=== PATIENT | female | born 1955 | race Caucasian/White ===

== ENCOUNTER 2017-09-16 11:50 | Observation (INO) | payer SELFPAY ==
--- NOTE | 2017-09-16 13:03 | RAD ---
RADIOGRAPH CHEST 1 VIEW: HISTORY: 62-year-old female with palpitations and tachycardia. FINDINGS: There are no air space densities, pulmonary edema, pneumothorax, or cardiomegaly. The lateral costop hrenic angles are sharp. IMPRESSION: No acute cardiopulmonary findings. jn [] POS: CAT
[2017-09-16 13:08] LABS: #Basophils 0.1 thou/uL (0.0-0.2); #Eosinphils 0.2 thou/uL (0.0-0.7); #Lymphocytes 2.6 thou/uL (1.20-3.40); #Monocytes 0.6 thou/uL (0.11-0.59); #Neutrophils 7.3 thou/uL (1.40-6.50); %Basophils 0.6 % (0.0-1.0); %Eosinophils 1.7 % (0.0-10.0); %Monocytes 5.4 % (0.0-10.0); %Neutrophils 68.3 % (42.0-75.0); Hemoglobin 18.3 g/dL (12.0-16.0); Mean Corpuscular HGB CONC 34.1 g/dL (32.0-36.0); Mean Corpuscular Hemoglobin 36.9 pg (27.0-31.0); Mean Platelet Volume 6.9 fL (7.4-10.4); Platelet Count 251 thou/uL (130-400); RBC Distribution Width 14.1 % (11.5-14.5); Red Blood Cell (RBC) Count 4.95 mill/uL (4.20-5.40); White Blood Cell (WBC) Count 10.7 thou/uL (4.8-10.8)
[2017-09-16 13:11] LABS: ALT (SGPT) 13 U/L (8-55); AST (SGOT) 23 U/L (5-34); Albumin 3.9 g/dL (3.5-5.0); Alkaline Phosphatase 115 U/L (40-150); Anion Gap 18 mmol/L (10-20); BUN (Urea Nitrogen) 8 mg/dL (9.8-20.1); Bilirubin, Total 1.5 mg/dL (0.2-1.2); CK (CPK) 42 U/L (29-168); Calc. Creatinine Clearance 0 mL/min (70-130); Calcium 9.4 mg/dL (7.8-10.44); Carbon Dioxide 20 mmol/L (22-29); Chloride 99 mmol/L (98-107); Estimated GFR-MDRD 72; Globulin 3.2 g/dL (2.4-3.5); Glucose 108 mg/dL (70-105); Potassium 3.7 mmol/L (3.5-5.1); Protein, Total 7.1 g/dL (6.0-8.3); Sodium 133 mmol/L (136-145)
[2017-09-16 13:15] LABS: CKMB 1.1 ng/mL (0-6.6); Troponin I Less than 0.010 ng/mL (< 0.028)
[2017-09-16 13:26] LABS: MDiff Complete? YES; Macrocytosis SLIGHT = 6-15 cells (100X) (0-5/hpf); PLT Morphology Comment Appears Adequate; Polychromasia SLIGHT = 2-3 cells (100X) (0-2/hpf)
[2017-09-16 16:50] LABS: Troponin I 0.016 ng/mL (< 0.028)
[2017-09-16] MEDS ORDERED: Ondansetron ODT 4 MG TAB PO PRN (16:58)
[2017-09-16 18:03] VITALS: BMI 29.9
[2017-09-16 19:17] LABS: Troponin I 0.017 ng/mL (< 0.028)
[2017-09-16 19:38] LABS: Thyroid Stimulating Hormone 5.2036 uIU/mL (0.35-4.94)
[2017-09-16] MEDS ORDERED: Magnesium 2 GM/NS 0.9% 100 ML 2 GM in Premix Bag 1 BAG IVPB SCH (22:00)
[2017-09-17 08:13] VITALS: BP 113/56; TEMP 97.5
[2017-09-17] MEDS ORDERED: Lorazepam 0.5 MG TAB PO SCH (09:00)
--- NOTE | 2017-09-17 14:26 | EKG ---
Test Reason : TACHYCARDIA Blood Pressure : / mmHG Vent. Rate : 099 BPM Atrial Rate : 099 BPM P-R Int : 142 ms QRS Dur : 070 ms QT Int : 334 ms P-R-T Axes : 040 036 065 degrees QTc Int : 428 ms Sinus rhythm with occasional Premature ventricular complexes Otherwise normal ECG Confirmed by LONDON ESCOBAR, ANTONINA ([id number]), advertising editor DALTON ESTRELLA ([id number]) on 09/17/2017 2:25:45 PM Referred By: LONDON Confirmed By:ANTONINA CALLAHAN MD
--- NOTE | 2017-09-17 16:09 | HP ---
CHIEF COMPLAINT: Feeling funny. HISTORY OF PRESENT ILLNESS: This patient is a 62-year-old, who has a history of some anxiety disorder, hypertension and smoking, who woke this morning and skipped her usual breakfast and missed her morning lorazepam dose and began driving to visit a friend from [place] to [place]. The patient started feeling "funny." She just did not feel quite right. She subsequently felt like she was going to pass out, so she pulled over the car and bought a banana and ate that. Subsequently, she felt worse and pulled over her car and called 911. Patient states that she was short of breath and then she was breathing heavily. She states that it felt like it was a panic attack. It felt like it was similar to a panic attack she had had a couple of years prior. No chest pain or palpitations. She did report some tingling in her right arm, but that had been intermittent as before. Patient reports that after she called the ambulance and en route that she felt like her neck was aching. The patient's symptoms completely resolved. Of note, when the patient was en route in ambulance that she was having some frequent PVC's and that symptoms appeared to be contemporaneous. REVIEW OF SYSTEMS: System review was negative except for those things mentioned. PAST MEDICAL HISTORY: Notable for the above-mentioned hypertension and some chronic hypokalemia, B12 deficiency. FAMILY HISTORY: Father at 66, apparently some idiopathic pulmonary fibrosis, but also had some coronary artery disease. SOCIAL HISTORY: States she did use drugs in the 70s, but none since that time. States losing multiple family members over a period of time, including her son. MEDICATIONS: Losartan p.o. b.i.d., lorazepam x1 p.o. daily, potassium 20 mEq daily. B12 oral supplements. PHYSICAL EXAMINATION: VITAL SIGNS: Temperature is 98, pulse 83, respirations 16, O2 sat 97% on room air. GENERAL: NECK: Supple and symmetric without lymphadenopathy, JVD, or carotid bruits. HEART: No murmurs, gallops or rubs. CHEST: Lungs are clear to auscultation bilaterally with good chest wall expansion, air exchange. ABDOMEN: Soft, nontender, nondistended. Positive bowel sounds. SKIN: Warm and dry. LABORATORY DATA AND X-RAY FINDINGS: Occasional PVC noted occasionally on the monitor. Hemoglobin 18.3, MCV is 108.0. There is some polychromasia and cytosis. Sodium 133, potassium 3.7, chloride 99, CO2 of 20, BUN is 8, creatinine 0.81, glucose 108, calcium 9.4. AST 23. ALT 13. Troponin less than 0.01. Chest x-ray shows no acute abnormalities. IMPRESSION AND PLAN: 1. Apparent symptomatic premature ventricular contractions. We will check thyroid level and magnesium level. This certainly may be related to the patient 's skipping breakfast and consuming some nicotine and caffeine. We will keep her on tele and monitor troponins. The fact that it is similar to a previous episode of anxiety attack makes this possible in the differential; however, she did have some specific symptom with premature ventricular contractions observed. 2. Hypertension. We will continue with her usual home medication regimen. 3. History of B12 deficiency. Patient has significant macrocytosis and has been told that she has B12 deficiency and she is taking B12 supplements. Certainly, could account for some of her paresthesias in the right hand. 4. Polycythemia. Patient may have some polycythemia secondary to her smoking. POLLY
--- NOTE | 2017-09-19 19:56 | DIS ---
DATE OF ADMISSION: 09/16/2017 DATE OF DISCHARGE: 09/17/2017 DISCHARGE DIAGNOSES: 1. Symptomatic premature ventricular contractions. 2. Possible anxiety attack. 3. Mild hypomagnesemia. 4. Hypertension. 5. History of B12 deficiency. 6. Polycythemia. HISTORY: The patient is a 62-year-old female who has had some history of anxiety attacks previously. The patient has suffered significant psychosocial stressors over the previous year including loss o f multiple family members, one of those family members was her son. The patient was in her usual sta te of good health and in her usual routine on the day of admission. She had actually skipped her fallon akfast and her morning lorazepam and started driving to a friend's home, out of town. She subsequent ly started feeling strange and felt short of breath and felt like she was breathing heavy. She state s this was similar to previous panic attacks. She tried to eat a snack, but her symptoms only got wo rse. She subsequently called 911 and an ambulance brought the patient to the hospital. En route, th claudia noticed that the patient was having fairly frequent PVCs and that her symptoms seemed to be somewh at related to that. On arrival, the patient's workup was largely unremarkable. Her labs and chest x -ray were unrevealing. Her EKG and monitor did show some occasional PVCs. At the time of my exam, t he patient was essentially back to her baseline. HOSPITAL COURSE: The patient was placed in observation. She remained on telemetry. She had subsequ ent labs, which revealed a low magnesium. She was given a dose of IV magnesium. Her labs did ultima tely reveal that she had some polycythemia that the patient was a smoker and it was felt to be attrib utable to that. She also had severe macrocytosis, but carries a diagnosis of B12 deficiency. She wa s maintained on her usual home medications for hypertension. The patient had no further symptoms, di d well overnight and her serial troponins were unremarkable. It was felt that her symptoms were eith er related to symptomatic PVCs potentially exacerbated by hypomagnesemia or this could be a panic att ack or hypoglycemia. She was felt to be stable for discharge to home. PHYSICAL EXAMINATION: VITAL SIGNS: On the day of discharge, temperature is 97.5, pulse 73, respirations 18, blood pressure is 113/56. GENERAL: She is awake, alert, oriented, very pleasant, cooperative, no distress. HEART: Regular rate and rhythm. LUNGS: Clear bilaterally. ABDOMEN: Soft, nontender, nondistended with positive bowel sounds. EXTREMITIES: Warm and dry. DISPOSITION: The patient is discharged to home. She is to continue with her usual diet and activity level. DISCHARGE MEDICATIONS: She will be on her usual potassium 20 mEq daily, lorazepam 1 mg b.i.d. p.r.n. , losartan/HCTZ 50/12.5 one p.o. daily. FOLLOWUP: She is to follow up with her PCP and return to the emergency department should she have an y problems prior to that time.
== END 2017-09-17 12:11 | disposition home or self-care (01) ==
LOC: ERS 11:50 → INTOOBSV 15:00 → 2NO 15:00
PROVIDERS: ADMIT Internal Medicine; ATTEND Internal Medicine
DX: I49.3 Ventricular premature depolarization (principal); I10 Essential (primary) hypertension; D75.1 Secondary polycythemia; E83.42 Hypomagnesemia; Z79.899 Other long term (current) drug therapy
CPT/HCPCS: 36415; 71045; 80053; 82553; 83735; 84439; 84443; 84484; 85025; 93005; 94760; 96365; G0378; J3475